=== PATIENT | male | born 1990 ===

== ENCOUNTER 2020-10-20 19:31 | Emergency (ER) | payer BC ==
[~2020-10-20] VITALS: Ht 165.1 cm; Wt 93.2 kg
== END 2020-10-20 21:14 | disposition left against medical advice (07) ==
LOC: COL.ER 19:31
DX: R42 Dizziness and giddiness (principal)

== ENCOUNTER → 2021-01-28 | Outpatient (CLI) | payer BC ==
[~2021-01-28] MED LIST: ATIVAN 0.50.5 MG/TAB PO
== END ==
LOC: COL.VAS 11:57
DX: R06.02 Shortness of breath (principal)

== ENCOUNTER 2021-02-12 15:55 | Emergency (ER) | payer OTHER, BC ==
[~2021-02-12] VITALS: Ht 165.1 cm; Wt 87.3 kg
[2021-02-12 18:09] VITALS: TEMP 98
[2021-02-12] MEDS ORDERED: ATIVAN 0.50.5 MG/TAB PO ×2 (19:37→19:41)
[2021-02-12 20:03] VITALS: BP 139/94; PULSE 75
== END 2021-02-12 20:03 | disposition home or self-care (01) ==
LOC: COL.ER 15:55
DX: F41.9 Anxiety disorder, unspecified (principal)

== ENCOUNTER 2021-06-08 10:58 | Outpatient (CLI) | payer BC ==
[~2021-06-08] VITALS: Ht 165.2 cm; Wt 92.4 kg
[2021-06-08 11:44] VITALS: BP 173/95; PULSE 60; TEMP 98.2
[2021-06-08] MEDS ORDERED: ATIVAN 0.50.5 MG/TAB PO (11:46)
[2021-06-08] MEDS ORDERED: BUSPIRONE HCL7.5 MG PO (11:47)
[2021-06-08] MEDS ORDERED: LEXAPRO20 MG PO (11:47)
[2021-06-08] MEDS ORDERED: NEXIUM 20MG20 MG PO (11:48)
[2021-06-08 13:15] VITALS: BP 136/82; PULSE 56
--- NOTE | 2021-06-08 14:14 | NUR ---
Discharge instructions given to pt.Pt verbalizes understanding.Pt escorted out by this nurse.
== END 2021-06-08 14:28 ==
LOC: COL.CAR 10:58
DX: R55 Syncope and collapse (principal)